=== PATIENT | female | born 1990 | race African-American/Black ===

== ENCOUNTER 2018-04-11 19:38 | Emergency (ER) | payer MEDICAID ==
[~2018-04-11] VITALS: Ht 172.7 cm; Wt 81.6 kg
[2018-04-11 19:56] VITALS: BP 112/68
[2018-04-11 20:31] LABS: APPEARANCE,URINE SLIGHTLY CLOUDY; BILIRUBIN, URINE NEGATIVE (NEGATIVE); COLOR,URINE PALE YELLOW; GLUCOSE, URINE (UA) NEGATIVE (NEGATIVE); KETONES,URINE NEGATIVE (NEGATIVE); LEUKOCYTE ESTERASE ,URINE 3+ (NEGATIVE); NITRITE,URINE NEGATIVE (NEGATIVE); PH,URINE 7 (4.5-8.0); PROTEIN,URINE NEGATIVE (NEGATIVE); UROBILINOGEN,URINE NORMAL MG/DL (0.0-1.0)
[2018-04-11] MEDS ORDERED: NITROFURANTOIN100 M2 ORAL (20:38)
[2018-04-11] MEDS ORDERED: HYDROCORTISONE-30 GM TOPIC (20:38)
[2018-04-11 20:47] VITALS: BP 114/73
[2018-04-11 20:48] VITALS: BP 114/73
--- NOTE | 2018-04-17 07:08 | Emergency Room Report ---
History of Present Illness General Chief Complaint: Skin Rash/Abscess Source: Patient Present Illness HPI Patient presents with complaints of some fullness sensation in her bladder and increased urination Denies any abdominal pain or cramping denies any vaginal bleeding or spotting Patient reports that she is approximately 15 weeks this is by an ultrasound 2 weeks ago at her OB physician office Denies any chest pain or shortness of breath patient also reported a lesion in the left antecubital area that was fairly puritic in nature Denies any fevers denies any spread of the lesion she has noticed the area for the past 3-4 days Allergies: Uncoded Allergies: PENNICILLIN (Allergy, Unknown, 04/11/18) Patient History Past Medical History: see triage record Pertinent Family History: none Last Menstrual Period: jan 02 Now: Yes Reviewed Nursing Documentation: PMH: Agreed; PSxH: Agreed Nursing Documentation-PMH Past Medical History: No Stated History Review of Systems All Other Systems: negative except mentioned in HPI Physical Exam 96% on room air which is normal Sp02 EP Interpretation: reviewed, normal General Appearance: well appearing, no apparent distress Head: normocephalic, atraumatic Eyes: bilateral eye PERRL, bilateral eye EOMI ENT: hearing grossly normal, normal pharynx, TMs + canals normal, uvula midline Neck: full range of motion, supple, no meningismus, no bony tend Respiratory: lungs clear, normal breath sounds, no rhonchi, no respiratory distress, no retraction, no accessory muscle use Cardiovascular #1: normal peripheral pulses, regular rate, rhythm, no edema, no gallop, no JVD, no murmur Gastrointestinal: normal bowel sounds, non tender, no organomegaly, non- distended, no guarding, no hernia, no pulsatile mass, no rebound, other - Gravid abdomen Genitourinary: no CVA tenderness Musculoskeletal: normal inspection Neurologic: oriented x3, responsive, principal software engineer III-XII nml as tested, motor strength/ tone normal, sensory intact Psychiatric: mood/affect normal Skin: other - Very small possibly half by half centimeter lesion left medial aspect of the elbow, appears to be small eczematous lesion, no obvious fluctuance, no obvious dermatomal spread no other petechiae or other acute pathology Lymphatic: normal inspection, no adenopathy Medical Decision Making Diagnostic Impression: Primary Impression: Rash and other nonspecific skin eruption Additional Impression: uti ER Course Patient did not require emergency ultrasound given the lack of any bleeding and recent evaluation urine sample did show evidence of UTI patient initiated on antibiotics for this Skin lesion appears to be nonspecific and nonemergent patient is stable for close outpatient follow-up UA:30-40 white blood cells, many bacteria Status: improved Disposition: HOME, SELF-CARE Condition: Improved Scripts Hydrocortisone/Aloe Vera 1%* (HYDROCORTISONE-ALOE 1% CREAM*) Y Cr 1 APPLIC TOPIC Q8HR PRN for Itching for 5 Days, #30 GM Prov: Kandace Reagan DO 04/11/18 Nitrofurantoin Monohyd/M-Cryst* (MACROBID 100 MG*) 100 Mg Capsule 100 MG ORAL EVERY 12 HOURS for 5 Days, CAP Prov: Kandace Reagan DO 04/11/18 Referrals: NOT CHOSEN IPA/MD,REFERRING (PCP) Patient Instructions: Rash, and Urinary Tract Infection Additional Instructions: Patient is provided with the discharge instructions notified to follow up with primary doctor in the next 2-3 days otherwise return to the er with any worsening symptoms. Please note that this report is being documented using [employer]ulet technology. This can lead to erroneous entry secondary to incorrect interpretation by the dictating instrument. Kandace Reagan DO Apr 17, 2018 07:08
== END 2018-04-11 20:48 | disposition home or self-care (01) ==
LOC: EMR 20:30
DX: O26.899 Other specified pregnancy related conditions, unspecified trimester (principal); Z3A.15 15 weeks gestation of pregnancy; R10.2 Pelvic and perineal pain; R21 Rash and other nonspecific skin eruption; Z87.891 Personal history of nicotine dependence
CPT/HCPCS: 81003; 87086; 99283